=== PATIENT | male | born 1990 | race Caucasian/White ===

== ENCOUNTER → 2020-02-19 13:43 | Outpatient (CLI) | payer OTHER, SELFPAY ==
--- NOTE | 2020-02-19 | DI.RAD.S_ITS ---
PROCEDURE: FL SHOULDER INJECTION MR/CT RT INDICATIONS: CHRONIC RIGHT SHOULDER PAIN TECHNIQUE: The indications, alternatives, benefits, risks, and complications of the procedure were explained to the patient. Written informed consent was obtained and placed in the chart. The shoulder was examined fluoroscopically and a site for needle placement chosen for entry into the glenohumeral joint from an anterior approach. The skin was prepped and draped in a sterile fashion, and 1% lidocaine infiltrated from skin down to joint capsule. A spinal needle was inserted into the glenohumeral joint, and a small amount of iodinated contrast media injected to confirm intra-articular placement of the needle tip. This was followed by approximately 12 mL dilute solution of a gadolinium containing MR contrast agent. The needle was removed and a dressing was applied. The patient was given postprocedural instructions and sent to the MR suite for MR imaging. FINDINGS: A single fluoroscopic spot image demonstrates intra-articular location of injected iodinated contrast. IMPRESSION: Successful fluoroscopically guided administration of dilute Gadolinium solution into the shoulder joint for MR arthrogram. Dictated by: Cha Estrada MD, PhD on 02/19/2020 at 15:03 Approved by: hCa Estrada MD, PhD on 02/19/2020 at 15:03
--- NOTE | 2020-02-19 | DI.MRI.S_ITS ---
PROCEDURE: MR SHOULDER RT W CON INDICATIONS: CHRONIC RIGHT SHOULDER PAIN TECHNIQUE: After the administration of 12 mL of dilute intra-articular Gadolinium contrast, oblique coronal T1 and T2 spin echo with fat saturation, oblique sagittal T1 spin echo with and without fat saturation, oblique sagittal T2 fast spin echo with fat saturation, axial T1 spin echo with fat saturation through the shoulder. COMPARISON: None. FINDINGS: Image quality: Excellent. Rotator cuff: There is low-grade articular surface partial-thickness tear involving anterior fibers of the distal supraspinatus near musculotendinous junction. Distal infraspinatus tendon is intact. Distal subscapularis is intact. No rotator cuff muscle atrophy on sagittal images. Bones and bursae: No bone marrow contusions or fractures. No acromioclavicular joint degeneration. The acromion demonstrates conventional anatomy, without an os acromiale. Capsule and soft tissues: There is contrast extension and chondral irregularity involving superior anterior labrum at 12 to 1:00 position. The glenohumeral ligaments appear intact. The long head of the biceps tendon demonstrates normal location and morphology. The rotator interval appears normal, without fibrosis. The coracohumeral ligament is of normal thickness. No intra-articular bodies. IMPRESSION: 1. Finding is suggestive of superior anterior labral tear at 12 to 1:00 position. 2. Tendinosis and low-grade articular surface partial-thickness tear involving distal supraspinatus near musculotendinous junction. No full-thickness rotator cuff tendon rupture. 3. No marrow edema. No fracture or dislocation. Dictated by: Aidan Butler M.D. on 02/19/2020 at 15:39 Approved by: Aidan Butler M.D. on 02/19/2020 at 15:40
== END ==
PROVIDERS: PCP Internal Medicine; Referring Provider Orthopaedic Surgery; Visit Provider Orthopaedic Surgery
DX: M75.111 Incomplete rotator cuff tear or rupture of right shoulder, not specified as traumatic (principal); M25.511 Pain in right shoulder; G89.29 Other chronic pain
CPT/HCPCS: 23350; 73222; 77002